=== PATIENT | male | born 1940 | race Caucasian/White ===

== ENCOUNTER 2018-08-12 09:42 | Emergency (ER) | payer OTHER ==
[~2018-08-12] VITALS: Ht 172.7 cm; Wt 70.5 kg
[~2018-08-12 09:42] MED LIST: ACET-784 PO; ASPI-1182 PO; BISA10S PR; CARV3 PO; DONE5TAB5 PO; DSS100 PO; FURO20 PO; HEP5KI SQ; HYDR-3965 PO; LISI-660 PO; LORA0.5T2 PO; MOM30 PO; MORP1SYR2 IV; ONDA22I IVP; PANT40TA25 PO; ZALE5CAP6 PO; [UNRECOGNIZED DRUG - OTHER] PO
[2018-08-12] MEDS ORDERED: FAMO20 PO (10:15)
[2018-08-12] MEDS ORDERED: TRAM50TA4 PO (10:15)
[2018-08-12] MEDS ORDERED: MEMA5 PO (10:15)
[2018-08-12 10:25] LABS: BASOPHILS % (AUTO) 0.6 % (0.0-2.0); EOSINOPHILS % (AUTO) 0.5 % (1.0-6.0); HEMATOCRIT 48.8 % (41-53); HEMOGLOBIN 16.7 g/dL (13.5-17.5); LYMPHOCYTES # (AUTO) 1.3 K/uL (1.0-4.8); LYMPHOCYTES % (AUTO) 13.4 % (22.0-44.0); MEAN CORPUSCULAR HEMOGLOBIN 29.4 pg (26.0-34.0); MEAN CORPUSCULAR HGB CONC 34.1 G/dL (31.0-37.0); MEAN CORPUSCULAR VOLUME 86 fL (80-100); MONOCYTES # (AUTO) 0.9 K/uL (0.1-1.0); MONOCYTES % (AUTO) 9.1 % (2.0-9.0); NEUTROPHILS # (AUTO) 7.2 K/uL (1.8-7.7); NEUTROPHILS % (AUTO) 76.4 % (40.0-70.0); PLATELET COUNT (AUTO) 179 K/uL (150-450); RED BLOOD CELL COUNT(AUTO) 5.66 MIL/uL (4.50-5.90); RED CELL DISTRIBUTION WIDTH 15.5 % (11.5-14.5)
[2018-08-12 10:33] LABS: ANION GAP 9 mmol/L (8-16); CARBON DIOXIDE 31 mmol/L (22-29); CHLORIDE 105 mmol/L (98-107); CREATININE 1.26 mg/dL (0.60-1.30); GLOMERULAR FILTR. RATE CALC 56 mL/min (>60); GLUCOSE,RANDOM 106 mg/dL (70-110); POTASSIUM 3.6 mmol/L (3.5-5.1); SODIUM SERUM 145 mmol/L (136-145); UREA NITROGEN, BLOOD 30 mg/dL (7-18)
[2018-08-12 10:39] LABS: ALANINE AMINOTRANSFERASE 29 U/L (12-78); ALBUMIN 3.4 g/dL (3.4-5.0); ALKALINE PHOSPHATASE 105 U/L (46-116); ASPARTATE AMINOTRANSFERASE 32 U/L (15-37); BILIRUBIN,TOTAL 1.1 mg/dL (0.1-1.0); LIPASE 264 U/L (73-393); TOTAL PROTEIN, SERUM 8.1 g/dL (6.4-8.2)
[2018-08-12 10:49] LABS: PLATELET MORPHOLOGY COMMENT LARGE PLTS PRESENT
[2018-08-12] MEDS ORDERED: DONE10TA8 PO (10:59)
[2018-08-12] MEDS ORDERED: TAMS0.4C32 PO (10:59)
[2018-08-12] MEDS ORDERED: CARV6 PO (10:59)
[2018-08-12] MEDS ORDERED: HALOPERIDOL LACTATE 5 MG/ML VIAL IM ONE (11:00)
[2018-08-12] MEDS ORDERED: LORazepam 2 MG/ML VIAL IM ONE (11:00)
[2018-08-12 14:50] VITALS: BP 120/74
== END 2018-08-12 15:05 | disposition home or self-care (01) ==
LOC: EMS 09:44
DX: F03.91 Unspecified dementia, unspecified severity, with behavioral disturbance (principal); F05 Delirium due to known physiological condition; I48.91 Unspecified atrial fibrillation; F41.9 Anxiety disorder, unspecified; K21.9 Gastro-esophageal reflux disease without esophagitis; Z87.891 Personal history of nicotine dependence; Z79.82 Long term (current) use of aspirin; Z79.899 Other long term (current) drug therapy
CPT/HCPCS: 36415; 71045; 80053; 83690; 84484; 85025; 93005; 96372; 99291; G0480; J1630; J2060